=== PATIENT | female | born 1995 | race Two or more races ===

== ENCOUNTER 2020-11-06 18:50 | Emergency (ER) | payer SELFPAY ==
[~2020-11-06] VITALS: Ht 157.5 cm; Wt 70.0 kg
[2020-11-06] MEDS ORDERED: IBUPROFEN 600MG TABLET PO ONE (19:15)
[2020-11-06] MEDS ORDERED: IBUP-2029 MT (20:18)
[2020-11-06 20:47] VITALS: BP 138/82
== END 2020-11-06 20:48 | disposition home or self-care (01) ==
LOC: ER 18:50
DX: S90.112A Contusion of left great toe without damage to nail, initial encounter (principal); X58.XXXA Exposure to other specified factors, initial encounter; Y93.89 Activity, other specified; Y92.89 Other specified places as the place of occurrence of the external cause; Y99.8 Other external cause status
CPT/HCPCS: 73660; 99283; Z7610